=== PATIENT | female | born 1980 | race Caucasian/White ===

== ENCOUNTER → 2020-11-12 09:11 | Outpatient (CLI) | payer OTHER, SELFPAY ==
--- NOTE | 2020-11-12 | DI.RAD.S_ITS ---
PROCEDURE: FL HIP INJECTION MR/CT RT INDICATIONS: Pain in right hip TECHNIQUE: The indications, alternatives, benefits, risks, and complications of the procedure were explained to the patient. Written informed consent was obtained and placed in the chart. The hip was examined fluoroscopically with the legs fixed in slight internal rotation, and a site for needle placement chosen for entry into the hip joint from an anterior approach. Care was taken to locate the common femoral artery and vein beforehand. The skin was prepped and draped in a sterile fashion, and 1% Lidocaine infiltrated from skin down to joint capsule. A spinal needle was inserted into the joint, and a small amount of iodinated contrast media injected to confirm intra-articular placement of the needle tip. This was followed by approximately 10 mL dilute solution of a gadolinium containing MR contrast agent. The needle was removed and a dressing was applied. The patient was given postprocedural instructions and sent to the MR suite for imaging. COMPARISON: None. FINDINGS: A single fluoroscopic spot image demonstrates intra-articular location of injected iodinated contrast. IMPRESSION: Successful fluoroscopically guided administration of dilute Gadolinium solution into the hip joint for MR arthrogram. Dictated by: Daron Gregorio M.D. on 11/12/2020 at 13:55 Approved by: Daron Gregorio M.D. on 11/12/2020 at 13:55
--- NOTE | 2020-11-12 | DI.MRI.S_ITS ---
PROCEDURE: MR HIP RT W CON INDICATIONS: Pain in right hip TECHNIQUE: After the administration of 10 mL of dilute intra-articular Gadolinium contrast, coronal STIR of the bony pelvis; coronal and oblique axial T1 spin echo with fat saturation, axial T2 fast spin echo with fat saturation, sagittal T1 spin echo with and without fat saturation of the involved hip. COMPARISON: None. FINDINGS: Image quality: Excellent. Bones and joints: Bone marrow of the pelvic ring and proximal femurs show normal signal throughout. Mild prominence of right femoral head neck junction anteriorly is seen with slight cortical thickening which can be seen in the case of cam type femoral acetabular impingement. No intraosseous lesions or fractures. No avascular necrosis of the femoral head. The visualized lower lumbar spine appears normally aligned. The ligamental, neck, and labral plicae appear normal where visualized. Tendons and ligaments: Mild distal right gluteus medius and minimus tendinosis and low-grade partial-thickness tear at their insertion on greater trochanter is seen, without associated muscle atrophy. The nearby proximal iliotibial band also appears intact. The iliopsoas tendon appears intact, without adjacent bursal fluid collections or evidence for impingement syndrome. There is thickening of common climb stream tendon origin at ischial tuberosity suggestive of tendinosis. The straight and reflected heads of the rectus femoris muscle origin appear intact, as well as the conjoint tendon. The ligamentum teres appears intact where visualized. Labrum and cartilage: The acetabular labrum appears intact throughout. Cartilage surface of the femoral head appears of normal thickness. No paralabral cysts. The alpha angle of the femur is within normal limits at less than 55 degrees. Soft tissues: Visualized muscles demonstrate normal bulk and internal signal. Quadratus femoris muscle demonstrates moderate internal edema concerning for ischiofemoral impingement. The proximal sciatic neurovascular bundle appears normal adjacent to the hamstring tendons. No free pelvic fluid. Bladder wall thickness is normal. Genitourinary structures and bowel loops appear normal where visualized. IMPRESSION: 1. No marrow edema. No fracture or dislocation. No evidence of avascular necrosis of femoral head. 2. No focal labral tear. 3. Mild distal right gluteus medius and minimus tendinosis and low-grade partial-thickness tear at their insertions on greater trochanter. Tendinosis involving origin of hamstring tendons at ischial tuberosity. 4. Intramuscular edema involving quadratus femoral muscle at the level of ischial tuberosity concerning for ischial femoral impingement. Dictated by: Aldo Durbin M.D. on 11/12/2020 at 11:26 Approved by: Aldo Durbin M.D. on 11/12/2020 at 11:40
== END ==
PROVIDERS: PCP Physician Assistant; Referring Provider Physician Assistant; Visit Provider Orthopaedic Surgery
DX: M25.551 Pain in right hip (principal)
CPT/HCPCS: 27093; 73722; 77002

== ENCOUNTER → 2021-10-14 15:33 | Outpatient (CLI) | payer OTHER, SELFPAY ==
--- NOTE | 2021-10-14 | DI.MRI.S_ITS ---
PROCEDURE: MR ANKLE RT WO CON INDICATIONS: Right Plantar fascial fibromatosis TECHNIQUE: Noncontrast sagittal T1 spin echo and T2 fast spin echo with fat saturation, axial proton density fast spin echo and T2 fast spin echo with fat saturation, coronal T1 spin echo and T2 fast spin echo with fat saturation through the ankle/hindfoot. COMPARISON: [facility] [place], CR, XR FOOT 1 OR 2 VIEWS WEIGHT BEARING RIGHT, 06/20/2021, 11:25. FINDINGS: Image quality: Excellent. Bones and joints: No bone marrow contusions or fractures. No hindfoot coalitions. No osteochondral injuries of the talar dome. A 1 cm simple bone cyst is seen in the medial calcaneus. Degenerative changes are seen in the 1st metatarsophalangeal joint with mild elix valgus and cystic changes in the medial 1st metatarsal head. Medial structures: The deep and superficial layers of the deltoid ligament appear intact. The spring ligament components are intact. There is mild tenosynovitis of the posterior tibialis tendon. The flexor digitorum longus and flexor hallucis longus tendons are intact. The posterior tibial neurovascular bundle appears normal within the tarsal tunnel, without extrinsic mass effect. Lateral structures: The anterior talofibular, calcaneofibular, and posterior talofibular ligaments appear intact. The anterior and posterior tibiofibular ligaments appear intact. There is mild tendinosis of the peroneus longus tendon. The peroneus brevis tendon is intact. The sinus tarsi demonstrates normal fatty signal. Anterior structures: The tibialis anterior, extensor hallucis longus, and extensor digitorum longus tendons appear intact. The dorsal talonavicular ligament appears intact. Posterior and plantar structures: Achilles tendon is intact. A small nonedematous posterior calcaneal enthesophyte is seen. There is trace linear fluid signal intensity at the origin of the plantar fascia with mild surrounding soft tissue and osseous edema, which is suspicious for partial-thickness tearing superimposed on chronic fasciitis. No nodular thickening of the plantar fascia or mass is seen. IMPRESSION: 1. Partial tearing of the proximal plantar fascia with mild surrounding soft tissue and osseous edema superimposed on chronic fasciitis. No calcaneal fracture. No focal plantar fascial fibroma is seen. 2. Mild posterior tibialis tenosynovitis. 3. Mild peroneus longus tendinosis. Dictated by: Shaw Meza M.D. on 10/14/2021 at 16:54 Approved by: Shaw Meza M.D. on 10/14/2021 at 17:02
== END ==
PROVIDERS: PCP Physician Assistant; Referring Provider Orthopaedic Surgery Foot and Ankle Surgery; Visit Provider Orthopaedic Surgery Foot and Ankle Surgery
DX: M72.2 Plantar fascial fibromatosis (principal); M65.861 Other synovitis and tenosynovitis, right lower leg
CPT/HCPCS: 73721

== ENCOUNTER → 2024-09-30 18:45 | Outpatient (CLI) | payer OTHER, SELFPAY ==
--- NOTE | 2024-09-30 18:47 | DI.MRI.S_ITS ---
PROCEDURE: MR LUMBAR SPINE WO CON INDICATIONS: lumbar radiculopathy TECHNIQUE: Noncontrast sagittal T1 spin echo and T2 fast echo, sagittal STIR, axial T1 and T2 fast spin echo through the lumbar spine. Axial and oblique coronal T1 spin echo and STIR through the sacrum. In cases with scoliosis, additional coronal T2 fast spin echo may be performed. COMPARISON: None. FINDINGS: Image quality: Excellent. Alignment and Curvature: There is normal bony alignment. Bone Marrow: Marrow is of normal overall signal. No acute vertebral body compression fractures. No sacral fractures. Spinal Cord: Conus medullaris terminates at the L1 level. Visualized cord demonstrates normal signal and size. Paraspinous Soft Tissues: No paravertebral masses. T12-L1: Normal appearance. L1-L2: Normal appearance. L2-L3: Normal appearance. L3-L4: Normal appearance. L4-L5: Mild disc bulge and arthropathy results in mild central stenosis. No foraminal stenosis L5-S1: Normal appearance. IMPRESSION: Mild degenerative changes without significant stenosis throughout the exam Approved by: Homer Armenta M.D. on 10/03/2024 at 19:10
== END ==
PROVIDERS: PCP Physician Assistant; Referring Provider Physical Medicine & Rehabilitation; Visit Provider Physical Medicine & Rehabilitation
DX: M47.26 Other spondylosis with radiculopathy, lumbar region (principal)
CPT/HCPCS: 72148

== ENCOUNTER → 2025-05-27 10:56 | Outpatient (CLI) | payer OTHER, SELFPAY ==
--- NOTE | 2025-05-27 10:58 | DI.MRI.S_ITS ---
PROCEDURE: MR ANKLE RT WO CON INDICATIONS: PAIN RIGHT MID FOOT TECHNIQUE: Noncontrast sagittal T1 spin echo and T2 fast spin echo with fat saturation, axial proton density fast spin echo and T2 fast spin echo with fat saturation, coronal T1 spin echo and T2 fast spin echo with fat saturation through the ankle/hindfoot. COMPARISON: [facility], MR, MR ANKLE RT WO CON, 10/14/2021, 15:35. FINDINGS: Image quality: Excellent. Bones and joints: No bone marrow contusions or fractures. No hindfoot coalitions. No osteochondral injuries of the talar dome. Small tibiotalar joint effusion, no loose bodies. Nonspecific small intraosseous cyst involving mid to distal portion of calcaneus is seen measures 1 x 0.7 cm in size. Small plantar and dorsal calcaneal enthesophytes are seen. Medial structures: The posterior tibialis tendon is mildly thickened with small amount of fluid distending tendon sheath at the level of mid to distal talus and talonavicular joint. The flexor digitorum longus, and flexor hallucis longus tendons are intact. The posterior tibial neurovascular bundle appears normal within the tarsal tunnel, without extrinsic mass effect. The deltoid ligament is intact. Mildly thickened spring ligament near its distal insertion is seen. Lateral structures: The anterior talofibular, calcaneofibular, and posterior talofibular ligaments appear intact. More superiorly, the anterior and posterior tibiofibular ligaments appear intact, as is the intermalleolar ligament. The tibiofibular syndesmosis is normal in width at 2 mm or less. The peroneus brevis tendon is intact. Mildly thickened peroneus longus tendon at the level of mid to distal calcaneus and calcaneocuboid joint is seen. The sinus tarsi demonstrates normal fatty signal, without edema, fibrosis, or cyst formation. Anterior structures: The tibialis anterior, extensor hallucis longus, and extensor digitorum longus tendons appear intact. The dorsal talonavicular ligament appears intact. Posterior and plantar structures: Achilles tendon is intact. Medial and lateral bands of the plantar fascia are of normal thickness. No abductor digiti quinti muscle atrophy to suggest Humphrey neuropathy. IMPRESSION: 1. No marrow edema. No fracture or dislocation. No osteochondral injuries of talar dome. Benign-appearing intraosseous cysts within mid to distal portion of calcaneus. Small plantar and dorsal calcaneal enthesophytes. Small joint effusion, no loose bodies. 2. Low to moderate grade tenosynovitis involving posterior tibialis tendon at the level of distal talus and talonavicular joint. 3. Low-grade sprain/intrasubstance partial-thickness tear involving spring ligament near its distal insertion. No full-thickness ankle ligament rupture. 4. Very mild tendinosis involving peroneus longus tendon at the level of mid to distal calcaneus and calcaneocuboid joint. Dictated by: Aldo Durbin M.D. on 05/29/2025 at 8:56 Approved by: Aldo Durbin M.D. on 05/29/2025 at 9:00
== END ==
PROVIDERS: PCP Physician Assistant; Referring Provider Orthopaedic Surgery Foot and Ankle Surgery; Visit Provider Orthopaedic Surgery Foot and Ankle Surgery
DX: S93.491A Sprain of other ligament of right ankle, initial encounter (principal); M19.071 Primary osteoarthritis, right ankle and foot; M77.31 Calcaneal spur, right foot; M65.971 Unspecified synovitis and tenosynovitis, right ankle and foot; M85.671 Other cyst of bone, right ankle and foot; M25.474 Effusion, right foot
CPT/HCPCS: 73721